=== PATIENT | female | born 1960 ===

== ENCOUNTER 2017-05-30 20:27 | Emergency (ER) | payer OTHER ==
[2017-05-30 20:55] VITALS: RESP 16
--- NOTE | 2017-05-30 21:38 | ED PDOC ---
HPI: Chest Pain Time Seen by Provider: 05/30/17 20:59 Chief Complaint (Nursing): Chest Pain History Per: Patient History/Exam Limitations: no limitations Additional Complaint(s): 56 YO F w/ PMH of HTN and chronic right shoulder pain presents to the ER with a pressure like chest pain which started yesterday. Pain is located in mid sternal area and is reproducible on palpation. Quantifies pain at a 6/10. Chest pain is associated with some difficulty breathing secondary to the pain She has also been having some epigastric pain and overall body weakness. Patient admits to nausea but denies any diarrhea. She was seen by her PMD today who gave her some meloxicamm and advised her to follow up with ER if chest pain symptoms worsen. Past Medical History Vital Signs: Last Vital Signs Temp 98.6 F 05/30/17 20:52 Pulse 74 05/30/17 20:52 Resp 16 05/30/17 20:52 BP 122/84 05/30/17 20:52 Pulse Ox 96 05/30/17 23:45 - Medical History PMH: HTN - Surgical History Surgical History: - Family History Family History: States: [place], Hypertension Other Family History: Mother had IA at the age of 50 - Social History Current smoker - smoking cessation education provided: No Ex-Smoker (has not smoked in the last 12 months): No Alcohol: None Drugs: Denies - Home Medications Home Medications: Ambulatory Orders Medication Instructions Recorded Atenolol 50 mg PO DAILY 05/30/17 - Allergies Allergies/Adverse Reactions: Allergies Allergy/AdvReac Type Severity Reaction Status Date / Time No Known Allergies Allergy Verified 05/30/17 20:52 KADE Risk Score for UA/NSTEMI - KADE Risk Score Age > 64: NO 3 or more CAD Risk Factors: NO Known CAD (Stenosis greater than 50%): NO Aspirin use in past 7 days: NO Severe Angina: NO EKG ST changes greater than 0.5mm: NO Positive Cardiac Marker: NO KADE Score: 0 Risk %: 5% Curb-65 Severity Score - CURB-65 Severity Score Confusion: No Bun >19mg/dl (>7mmol/L): No Respiratory Rate greater than/equal to 30: No Systolic BP <90 or Diastolic BP less than/equal 60mmHg: No Age >64: No Curb-65 Score: 0 Percentage 30-day mortality: 0.6% Wells Criteria for PE - Wells Criteria for Pulmonary Embolism Clinical Signs and Symptoms of DVT: No P.E is #1 Diagnosis, or Equally Likely: No Heart Rate >100: No Immobilization at least 3 days;Surgery previous 4 weeks: No Previous, objectively diagnosed PE or DVT: No Hemoptysis: No Malignancy w/treatment within 6 months, or palliative: No Total Score: 0 Review of Systems ROS Statement: Except As Marked, All Systems Reviewed And Found Negative Physical Exam - Physical Exam Appears: Positive for: No Acute Distress, Uncomfortable Head Exam: Positive for: NORMAL INSPECTION Skin: Positive for: Normal Color, Warm Neck: Positive for: Normal Cardiovascular/Chest: Positive for: Regular Rate, Rhythm. Negative for: Chest Non Tender (chest tender to palpate over sternal region), JVD, Murmur Respiratory: Positive for: Normal Breath Sounds. Negative for: Decreased Breath Sounds, Accessory Muscle Use, Crackles, Rales Gastrointestinal/Abdominal: Positive for: Bowel Sounds, Soft, Tenderness ( epgastric tenderness. ) - Laboratory Results Result Diagrams: 05/30/17 21:45 05/30/17 21:45 - ECG ECG: Positive for: Interpreted By Me, Viewed By Me ECG Rhythm: Positive for: Normal QRS, Normal ST Segment, Sinus Rhythm O2 Sat by Pulse Oximetry: 96 Medical Decision Making Medical Decision Making: CBC: WNL CMP: WNL CKMB: WNL Troponin x 1 negative EKG: Normal sinus rhytum Toradol x 1, Pepcid given. Patient appears to be doing better. Asleep comfortably. Disposition - Clinical Impression Clinical Impression: Atypical chest pain, Costochondritis - Disposition Disposition: Routine/Home Disposition Time: 23:44 Condition: IMPROVED Additional Instructions: Continue Meloxicam as prescribed Instructions: Costochondritis, Chest Pain That Is Not Caused by the Heart (DC) Forms: [employer] (Sami) Print Language: SYRIAC
[2017-05-30 21:59] LABS: BASO % 0.7 % (0.0-2.0); EOS # 0.1 K/uL (0.0-0.7); EOS % 2.7 % (0.0-4.0); HEMOGLOBIN 13.3 g/dL (12.0-16.0); LYMPH # 1.4 K/uL (1.0-4.3); LYMPH % 32.6 % (20.0-40.0); MEAN CELL VOLUME 90.4 fl (81.0-99.0); MEAN CORPUSCULAR HEMOGLOBIN 30.6 pg (27.0-31.0); MEAN CORPUSCULAR HGB CONC 33.8 g/dL (33.0-37.0); MEAN PLATELET VOLUME 7.9 fl (7.2-11.7); MONO # 0.7 K/uL (0.0-0.8); MONO % 16.8 % (0.0-10.0); NEUT # 2.1 K/uL (1.8-7.0); NEUT % 47.2 % (50.0-75.0); NRBC % 0.4 % (0.0-0.0); RBC 4.34 Mil/uL (3.80-5.20); RED CELL DISTRIBUTION WIDTH 13.6 % (11.5-14.5); WHITE BLOOD COUNT 4.4 K/uL (4.8-10.8)
[2017-05-30 22:19] LABS: ALB/GLOB RATIO 1.2 (1.0-2.1); ALBUMIN 3.8 g/dL (3.5-5.0); ALT/SGPT 40 U/L (9-52); AST/SGOT 25 U/L (14-36); BLOOD UREA NITROGEN 14 mg/dl (7-17); GFR AFRICAN-AMERICAN > 60; GFR NON-AFRICAN AMERICAN > 60; MAGNESIUM 2.2 MG/DL (1.6-2.3)
[2017-05-31 00:06] VITALS: BP 129/82; PULSE 75; TEMP 98; O2SAT 99
--- NOTE | 2017-05-31 08:58 | RAD ---
HISTORY: chest pain COMPARISON: No prior. FINDINGS: LUNGS: No active pulmonary disease. PLEURA: No significant pleural effusion identified, no pneumothorax apparent. CARDIOVASCULAR: Normal. OSSEOUS STRUCTURES: No significant abnormalities. VISUALIZED UPPER ABDOMEN: Normal. OTHER FINDINGS: None. IMPRESSION: No active disease.
--- NOTE | 2017-05-31 18:06 | CARD ---
APPROVED REPORT EKG Measurement Heart [id number] <Conclusion> Normal sinus rhythm Normal ECG
== END 2017-05-31 00:07 | disposition home or self-care (01) ==
LOC: H.ER 20:27
DX: M94.0 Chondrocostal junction syndrome [Tietze] (principal); I10 Essential (primary) hypertension
CPT/HCPCS: 71045; 80053; 81025; 82550; 83735; 84484; 85025; 93005; 99283; J1885

== ENCOUNTER 2017-08-08 09:09 | Day surgery (SDC) | payer OTHER ==
[2017-08-08] MEDS ORDERED: Lactated Ringer's 500 ML IV ONE (09:36)
[2017-08-08] MEDS ORDERED: Propofol 10 mg/ml Inj (20 ML) ONE (10:32)
[2017-08-08] MEDS ORDERED: Midazolam 2 MG/2 ML VIAL ONE (10:32)
[2017-08-08 11:26] VITALS: TEMP 97
[2017-08-08 11:45] VITALS: BP 121/79; PULSE 79; RESP 16; O2SAT 99
== END 2017-08-08 11:57 | disposition home or self-care (01) ==
LOC: H.ENDO 09:09
PROVIDERS: ATTEND Internal Medicine Gastroenterology
DX: Z12.11 Encounter for screening for malignant neoplasm of colon (principal); I10 Essential (primary) hypertension; K64.0 First degree hemorrhoids
CPT/HCPCS: G0121; J2001; J2704; J7120

== ENCOUNTER 2017-09-19 09:51 | Day surgery (SDC) | payer OTHER ==
[2017-09-19] MEDS ORDERED: Lactated Ringer's 500 ML IV ONE (10:09)
[2017-09-19 10:25] VITALS: RESP 14
[2017-09-19] MEDS ORDERED: Propofol 10 mg/ml Inj (20 ML) ONE (11:58)
[2017-09-19 12:20] VITALS: TEMP 96.8; O2SAT 100
[2017-09-19 12:35] VITALS: BP 125/87; PULSE 74
== END 2017-09-19 12:55 | disposition home or self-care (01) ==
LOC: H.ENDO 09:51
PROVIDERS: ATTEND Internal Medicine Gastroenterology
DX: K29.50 Unspecified chronic gastritis without bleeding (principal); K31.89 Other diseases of stomach and duodenum; R10.13 Epigastric pain; I10 Essential (primary) hypertension
CPT/HCPCS: 43239; 88305; J2001; J2704; J7120